=== PATIENT | male | born 1965 | race Caucasian/White ===

== ENCOUNTER 2018-03-18 23:12 | Emergency (ER) | payer SELFPAY ==
[~2018-03-18] VITALS: Ht 170.2 cm; Wt 52.2 kg
[2018-03-19] MEDS ORDERED: TYLENOL WITH C1 EACH PO (00:28)
[2018-03-19] MEDS ORDERED: BACTRIM DS TAB1 EACH PO (00:28)
== END 2018-03-19 00:43 | disposition home or self-care (01) ==
LOC: FSED 23:12
DX: L02.31 Cutaneous abscess of buttock (principal)
CPT/HCPCS: 87071; 87186; 87205; 99283

== ENCOUNTER 2018-03-19 12:08 | Emergency (ER) | payer SELFPAY ==
[~2018-03-19] VITALS: Ht 170.2 cm; Wt 52.2 kg
[~2018-03-19 12:08] MED LIST: BACTRIM DS TAB1 EACH PO; TYLENOL WITH C1 EACH PO
== END 2018-03-19 12:59 | disposition home or self-care (01) ==
LOC: ER 12:08
DX: L02.31 Cutaneous abscess of buttock (principal)
CPT/HCPCS: 99283

== ENCOUNTER 2018-03-21 22:01 | Emergency (ER) | payer SELFPAY ==
[~2018-03-21] VITALS: Ht 170.2 cm; Wt 52.2 kg
[2018-03-21] MEDS ORDERED: LEVOFLOXACIN 500 MG TAB PO ONE (23:15)
[2018-03-21] MEDS ORDERED: CLINDAMYCIN PHOS 600 MG/ 4 ML VIAL IM ONE (23:15)
[2018-03-22 00:14] VITALS: BP 133/83
== END 2018-03-22 00:26 | disposition home or self-care (01) ==
LOC: ER 22:01
DX: L02.31 Cutaneous abscess of buttock (principal); L03.116 Cellulitis of left lower limb; F17.210 Nicotine dependence, cigarettes, uncomplicated
CPT/HCPCS: 99283